=== PATIENT | female | born 1995 | race Caucasian/White ===

== ENCOUNTER 2024-08-23 23:19 | Emergency (ER) | payer BC, SELFPAY ==
[2024-08-23 23:27] VITALS: BP 129/87; PULSE 73; RESP 20; TEMP 36; O2SAT 98; BMI 36.6
--- OUTSIDE RECORDS SUMMARY | 2024-08-23 23:48 | XMS_ITS | Clinical Summary ---
Author Organization [facility] Address [address] [place] [address] Care Team Providers Care Serology Teacher Name Role Phone Amanda Bhakta STAFF E[employer] OFFICER Primary Care Provider [phone] Family History Medical History Relation Name Comments Heart defect Brother No Known Problems Father No Known Problems Father's Sister Cancer Maternal Grandfather Skin cancer Maternal Grandfather Multiple sclerosis Maternal Grandmother No Known Problems Mother Cancer Mother's Brother Skin cancer Mother's Brother Asthma Sister Relation Name Status Comments Brother Father Father's Sister Maternal Grandfather Maternal Grandmother Mother Mother's Brother Sister Social History Tobacco Use Types Packs/Day Years Used Date Smoking Tobacco: Never Smokeless Tobacco: Never Alcohol Use Standard Drinks/Week Comments Yes 0 (1 standard drink = 0.6 oz pur e alcohol) Comments Unknown Sex and Gender Information Value Date Recorded Sex Assigned at Not on file Legal Sex Female 8:28 PM EST Gender Identity Not on file Sexual Orientation Not on file Obstetrics History Last Filed Vital Signs Vital Sign Reading Time Taken Comments Blood Pressure 116/78 08/24/2022 12:28 PM EDT Sitting Right arm Pulse 67 08/24/2022 12:28 PM EDT Temperature - - Respiratory Rate - - Oxygen Saturation - - Inhaled Oxygen Concentration - - Weight 103 kg (226 lb 13.7 oz) 08/24/2022 12:28 PM EDT Height 165.1 cm (5' 5 ) 08/24/2022 12:2 8 PM EDT Body Mass Index 37.75 08/24/2022 12:28 PM EDT Plan of Treatment Health Maintenance Due Date Last Done Comments Cervical Cancer Screening: Pap Smear 2018 DTaP,Tdap,and Td Vaccines (7 - Td or Tdap) 11/21/2019 11/20/2009, 12/18/2001, 09/11/1998, Additional history exists Depression Screening 04/22/2023 HIV Screening 04/22/2023 Hepatitis C Screening 04/22/2023 Social Influencers of Health Screening 04/22/2023 COVID-19 Vaccine ( season) 2023 03/19/2021, 08/16/2020, 07/26/2020 Influenza Vaccine (Season Ended) 2024 02/07/2008 Cholesterol Screening (Lipid Panel) 12/26/2028 12/27/2023, 12/27/2023, 05/27/2022 Hepatitis B Vaccines Completed 1997, 1997, 1997 HIB Vaccines Completed 09/11/1998, 06/26, 1997, Additional history exists Pneumococcal Vaccine: Pediatrics (0 to 5 Years) and At-Risk Patients (6 to 64 Years) Completed 01/06/2000 IPV Vaccines Completed 12/18/2001, 08/26, 1997, Additional history exists MMR Vaccines Completed 12/18/2001, 05/02/1998 Varicella Vaccines Completed 11/20/2009, 09/11/1998 HPV Vaccines Completed 09/06/2013, 08/2013, 03/02/2013 Meningococcal ACWY Vaccine Completed 07/07/2015, Hepatitis A Vaccines Aged Out No long er eligible based on patient's age to complete this topic Meningococcal B Vaccine Aged Out No l onger eligible based on patient's age to complete this topic RSV Immunization Patients Under 20 months Aged Out No longer eligible based on patient's age to complete this topic Care Teams Serology Teacher Relationship Specialty Start Date End Date Amanda Bhakta NP [address] [place] [place] [address] PCP - General 02/10/23
--- NOTE | 2024-08-24 00:04 | ED.SKABFB ---
HPI - Skin/Abscess/Foreign Bdy General Chief complaint: Skin/Abscess/Foreign Body Stated complaint: psoriasis Time Seen by Provider: 08/23/24 23:55 Source: patient Mode of arrival: ambulatory Limitations: no limitations History of Present Illness ED Provider: Dr. Faby Gibbons HPI narrative: Patient comes to the emergency room complaining of bilateral redness and itching to the shins. Patient known to have psoriasis for which she takes eucrisa and fluocinonide, prescribed by her career law clerk. Patient states that for the last few days, the itching in her legs is not tolerable and has been scratching quite a bit. Now her legs are red and oozing serosanguineous fluid, denies fever or chills Related Data Previous Rx's ?Medication ?Instructions ?Recorded cephalexin 500 mg capsule 500 mg PO BID #14 caps 08/24/24 doxycycline monohydrate 100 mg 100 mg PO BID #14 caps 08/24/24 capsule hydroxyzine HCl 50 mg tablet 50 mg PO TID PRN itching #20 tabs 08/24/24 Allergies Allergy/AdvReac Type Severity Reaction Status Date / Time tapinarof [From [facility]] Allergy Hives Verified 08/23/24 23:31 Review of Systems Review of Systems: Constitutional : No Weight loss, No Fever, No Chills, No Night Sweats, No Fatigue, No Malaise ENT/Mouth : No Hearing loss, No Ear Pain, No Nasal Congestion, No Sinus Pain, No Hoarseness, No sore throat, No Rhinorrhea, No Swallowing Difficulty Eyes: No Eye Pain, No Swelling, No Redness, No Foreign Body, No Discharge, No Vision Changes Cardiovascular : No Chest Pain, No SOB, No Dyspnea on Exertion, No Orthopnea, No Edema, No Palpitations Respiratory : No Cough, No Sputum, No Wheezing, No Smoke Exposure, No Dyspnea Gastrointestinal : No Nausea, No Vomiting, No Diarrhea, No Constipation, No abdominal Pain, No Hematochezia, No Melena Genitourinary : no irregular bleeding, No Dysuria, No Urinary Frequency, No Hematuria, No Urinary Incontinence, No Urgency, No Flank Pain, No Urinary Flow Changes, No Hesitancy Musculoskeletal : No joint pain, No Myalgias, No Joint Swelling Skin : Itchy skin especially in the shins, erythematous and draining fluid Neuro : No Weakness, No Numbness, No Paresthesias, No Loss of Consciousness, No Dizziness, No Headache Psych : No Anxiety/Panic, No Depression, No SI/HI/AH/VH, No Social Issues, Heme/Lymph: No Bruising, No Bleeding,No Lymphadenopathy Endocrine : No Polyuria, No Polydipsia, No Temperature Intolerance [facility] Past Medical History Medical History (Updated 08/24/24 @ 00:11 by Faby Gibbons MD) Psoriasis Social History Social History Advance Directives: No Advance Directives Information Provided: No Physical Exam Vital Signs: Vital Signs: Last Vital Signs Temp 96.8 F 08/23/24 23:27 Pulse 73 08/23/24 23:27 Resp 20 08/23/24 23:27 BP 129/87 08/23/24 23:27 Pulse Ox 98 08/23/24 23:27 O2 Del Method Room Air 08/23/24 23:27 BMI result Body Mass Index 36.6 Const: Other: Appearance: Alert. Oriented X3. No acute distress. Eyes: Pupils equal, round and reactive to light. ENT: Pharynx normal. Neck: Normal inspection. Neck supple. No lymph nodes noted. No crepitus CVS: Normal heart rate and rhythm. Pulses normal. Normal S1 and S2 Respiratory: No respiratory distress. Breath sounds normal. No Wheezing. No rales Abdomen: Soft and nontender. No rigidity. No distention. Skin: Skin warm and dry. Normal skin color. Normal skin turgor, with the exception of the shins, See extremities below Extremities: No lower extremity edema. No Lacerations. No Rash, on patient's bilateral lower extremities: shins bilaterally are erythematous, there are scratches from her fingernails, oozing serosanguineous fluid Neuro: Oriented X 3. No motor deficit. No sensory deficit. Moving all extremities. No slurred speech. CN 2 through 12 grossly intact Psych: calm, cooperative, normal affect Course Course Course Narrative: Patient has already diagnosed psoriasis. Patient uses high potency steroids. Medical Decision Making Medical Decision Making MDM Narrative: I discussed the physical exam with the patient, patient has no cellulitis secondary from scratching. Localized, normal vitals, a concern for sepsis at this time Patient was given p.o. doxycycline and Keflex. Discussed with the patient to follow-up with her career law clerk, patient may need biologic medication such as Humira or other meds to help with her psoriasis since high CC steroids are not helping her Differential Diagnosis Differential Diagnoses: The differential diagnosis associated with the presentation includes (Psoriasis, cellulitis) Discharge Plan Discharge Clinical Impression: Cellulitis Patient Disposition: Home, Self-Care Instructions: Cellulitis (ED) Additional Instructions: Please follow-up with your primary care physician and career law clerk tomorrow. Is discussed with your career law clerk if a biologic medication such as Humira would be appropriate for you. If you have any worsening or new symptoms, please return to the emergency room or call 911 Prescriptions: New doxycycline monohydrate 100 mg capsule 100 mg PO BID Qty: 14 0RF cephalexin 500 mg capsule 500 mg PO BID Qty: 14 0RF hydroxyzine HCl 50 mg tablet 50 mg PO TID PRN (Reason: itching) Qty: 20 0RF Rx Instructions: Do not take this medication before driving, it may make you feel drowsy Stand Alone Forms: Work/School Release Print Language: Luxembourger
[2024-08-24] MEDS: cephALEXin 500 MG CAPSULE PO (00:34)
[2024-08-24] MEDS: Doxycycline Monohydrate 100 MG CAPSULE PO (00:34)
[2024-08-24 01:11] VITALS: BP 129/87; PULSE 73; RESP 20; TEMP 36; O2SAT 98
== END 2024-08-24 01:12 | disposition home or self-care (01) ==
PROVIDERS: Emergency Provider Emergency Medicine; PCP Nurse Practitioner
DX: L03.116 Cellulitis of left lower limb (principal); L03.115 Cellulitis of right lower limb; L40.9 Psoriasis, unspecified
CPT/HCPCS: 99282; 99283